=== PATIENT | female | born 1980 | race Caucasian/White ===

== ENCOUNTER 2022-05-30 15:00 | Outpatient (RCR) | payer OTHER, SELFPAY | END 2022-07-12 08:03 | disposition home or self-care (01) | LOC: HO.PT 15:00 | PROVIDERS: PCP Internal Medicine; Visit Provider Colon & Rectal Surgery | DX: N81.84 Pelvic muscle wasting (principal) | CPT/HCPCS: 97110; 97112; 97140; 97161; 97535 ==